=== PATIENT | female | born 1940 | race Caucasian/White ===

== ENCOUNTER 2023-06-14 15:31 | Inpatient (IN) | payer MEDICARE, BC, SELFPAY ==
[2023-06-14] VITALS (13 sets, daily range): BP systolic 109–158; BP diastolic 62–104; BMI 33.6; BMI 31.2
--- NOTE | 2023-06-14 08:51 | ED.GENMED ---
History of Present Illness
General
Chief Complaint: Heart Rate Problem
Source: patient
Exam Limitations: none
Time Seen by Provider: 06/14/23 08:38
Travel History
Have you had any contact with someone who has COVID-19?: No
Do you have any symptoms of coronavirus? Fever > 100 degrees, chills, cough, shortness of breath, sore throat, loss of taste or smell, muscle aches, or headache?: No
History of Present Illness
History of Present Illness:
See MDM
Past History
Past History
ED Past Medical History: Arrthythmia, CAD, GERD, HTN and Other (Breast CA)
Social History
Tobacco: Former smoker
Drug: None
Living: alone
Phy Exam
Physical Exam
Physical Exam:
See MDM
Course
Orders/Labs/Results
Orders:
Orders
06/14/23 08:28
Electrocardiogram (*1) Urgent
Reason for Study: Tachycardia
EKG- Treatment ONCE
06/14/23 08:48
Diltiazem HCl [Cardizem] 15 mg IV NOW STA
06/14/23 08:50
0.9% Sodium Chloride 1000 ml [Nss] 1,000 ml IV BOLUS
06/14/23 08:59
Complete Blood Count/With Diff Urgent
Comprehensive Metabolic Panel Urgent
Magnesium Urgent
06/14/23 10:34
Electrocardiogram (*1) Urgent
Reason for Study: Other
Other Reason for Exam: post rapid afib
EKG- Treatment ONCE
06/14/23 11:28
Potassium Chloride [KCl] 40 meq PO NOW STA
06/14/23 13:44
Consult Cardiology [CARDIOLOGY CONSULT] Urgent
Consulting Provider: Shahbaz Brown
Was physician already notified: Yes
Abnormal Lab Results
06/14/23
08:59
MPV 10.8 H fL
(7.4-10.4)
Absolute Monos (auto) 0.7 H 10^3/uL
(0.1-0.6)
Monocytes % 9.8 H %
(1.7-9.3)
Potassium 3.4 L mmol/L
(3.5-5.1)
Chloride 112 H mmol/L
(98-107)
Carbon Dioxide 17 L mmol/L
(22-30)
Glucose 116 H mg/dl
(70-99)
06/14/23 08:59
06/14/23 08:59
Vital Signs
Initial and Last Documented VS:
Initial Vital Signs
Temp Pulse Resp BP Pulse Ox
97.5 F 134 22 158/104 99
06/14/23 08:22 06/14/23 08:22 06/14/23 08:22 06/14/23 08:22 06/14/23 08:22
Last Documented Vital Signs
Temp Pulse Resp BP Pulse Ox
97.5 F 99 25 133/96 97
06/14/23 08:22 06/14/23 13:00 06/14/23 13:15 06/14/23 13:00 06/14/23 13:15
MDM/Problems Addressed
Differential Diagnosis Includes:
HPI and MDM Narrative:
82-year-old female presenting for evaluation of A-fib. She has a history of paroxysmal A-fib. She has been feeling short of breath over the past few days which is normal for her A-fib. She put on her Apple Watch today and told her she was in
A-fib. Patient denies chest pain or
Will give IV Cardizem and fluids and continue to reassess
Physical exam
General: Well appearing and non-toxic
HEENT: protecting airway
Neck: appears supple
CV: No evidence of cyanosis. Tachycardic and irregular
Resp: No accessory muscle use. Lungs clear
Abd: Non-distended
Extremities: No deformities. No leg edema
Neuro: alert
Psych: Normal affect
Skin: Intact
Problems Addressed including Acute and Chronic Conditions affecting care:
1. A-fib with RVR
Acuity: acute
Prognosis: unstable
Details: Will give IV fluids and IV Cardizem and attempt for chemical cardioversion
Updates
Case discussed with cardiology. Given that her baseline heart rate is in the 50s, there is not much room for sotalol. Because patient lives alone, she is not a great candidate to be cardioverted from the emergency department. Cardiology will
evaluate but will admit for further workup and treatment of symptomatic A-fib
Differential Diagnosis (but not limited to): A-fib with RVR, ACS, dehydration
Testing considered: D-dimer but she is anticoagulated
Drug therapy (if applicable): OTC meds, please see d/c instruction regarding Rx drugs
Amount and/or Complexity of Data Reviewed
Clinical info obtained from: Patient
External data reviewed: N/A
Labs I independently reviewed (but not limited to): mild hypoK
Radiology: N/A
Pulse Ox: not hypoxic
EKG independently reviewed: A-fib with RVR, normal axis, no STEMI
Financial Specialist: N/A
Critical Care: The high probability of a clinically significant, sudden or life threatening deterioration of the cardiovascular system(s) required my full and direct attention, intervention and personal management. The aggregate critical care time
was 33 minutes. This time is in addition to time spent performing reported procedures but includes the following:
[x] Data Review and interpretation
[x] Patient assessment and monitoring of vital signs
[x] Documentation
[x] Medication orders and management
Risk of Complication:
Social Determinants of health: Good social support
Discussed with other providers: Cardiology, hospital
Escalation of Care includes Admit/Obs: Given her symptomatic A-fib, will admit
Occasional wrong word or 'sound a like' substitutions may have occurred due to the inherent limitations of voice recognition software. Read the chart carefully and recognize, using context, where substitutions have occurred.
*Critical Care Note
Total Time (30-74mins, 75-104mins- exclusive of procedures): 33 min
ED Attending Note
-
Portions of this chart may have been created with voice recognition software.� Occasional wrong word or��sound alike� substitutions may have occurred due to the inherent limitations of voice recognition software.
Discharge Plan
Departure
Patient Disposition: Admit
Date of Disposition: 06/14/23
Time of Disposition: 13:49
Admit to: Telemetry
Presentation/result/management discussed w/ accepting MD/DO: Hospitalist
Discharge Problem:
A-fib, Acute dyspnea
Prescriptions:
No Action
cetirizine [Zyrtec] 10 mg Tablet
10 mg PO QPM
olmesartan 40 mg tablet
40 mg PO DAILY
clopidogrel 75 mg Tablet
75 mg PO DAILY Qty: 30 0RF
metoprolol succinate 25 mg Tablet Extended Release 24 Hr
12.5 mg PO DAILY Qty: 30 2RF
pantoprazole 40 mg Tablet,Delayed Release (Dr/Ec)
40 mg PO DAILY Qty: 30 2RF
nitroglycerin 0.4 mg tablet, sublingual
0.4 mg sublingual Q5M PRN (Reason: chest pain) Qty: 30 0RF
Xarelto 15 mg tablet
15 mg PO QPM
sotalol 80 mg Tablet
80 mg PO DAILY Qty: 30 1RF
aspirin 81 mg Tablet,Chewable
81 mg PO DAILY 4 Days Qty: 7 0RF
rosuvastatin 10 mg Tablet
10 mg PO DAILY@2030 Qty: 90 1RF
Referrals:
NONE,* [Family Provider] -
Interventions
Interventions:
*Risk Screen - Suicide Last Done: 06/14/23 08:22
*General Assessment Last Done: 06/14/23 08:22
*Neglect/Abuse Screening Last Done: 06/14/23 08:22
ED- Fall Risk Assessment Last Done: 06/14/23 08:42
*ED COVID-19 Vaccine History Last Done: 06/14/23 08:42
ED- Cardiac Assessment Last Done: 06/14/23 08:42
ED- Pulmonary Assessment Last Done: 06/14/23 08:42
[2023-06-14] MEDS: NSS 1000 IV (09:04)
[2023-06-14] MEDS: CARDIZEM 15 MG IV (09:04)
[2023-06-14 09:12] LABS: % Basophils 1.1 % (0-2); % Immature Granulocytes 0.3 % (0-0.5); % Lymphocytes 29.5 % (20.5-51.1); % Monocytes 9.8 % (1.7-9.3); % Neutrophils 53.3 % (42.2-75.2); Absolute Basophils 0.1 10^3/uL (0-0.2); Absolute Eosinophils 0.4 10^3/uL (0-0.7); Absolute Lymphocytes 2.1 10^3/uL (1.2-3.4); Absolute Monocytes 0.7 10^3/uL (0.1-0.6); Absolute Neutrophils 3.7 10^3/uL (1.4-6.5); Hematocrit 38.4 % (37.0-47.0); Hemoglobin 13.6 g/dL (12.0-16.0); Mean Corp Hgb Conc. 35.4 g/dL (33.0-37.0); Mean Corpuscular Hgb 29.3 pg (27.0-31.0); Mean Corpuscular Volume 82.8 fL (81.0-99.0); Mean Platelet Volume 10.8 fL (7.4-10.4); Nucleated Red Blood Cells % 0 %; Platelet Count 289 10^3/uL (130-400); Red Blood Cell Count 4.64 10^6/uL (4.20-5.40); Red Cell Dist. Width 13.7 % (11.5-14.5)
[2023-06-14 10:02] LABS: Blood Urea Nitrogen 17 mg/dl (7-17); Estimated Creatinine Clearance 45 ml/min; Glucose 116 mg/dl (70-99); Potassium 3.4 mmol/L (3.5-5.1); eGFR > 60.00
[2023-06-14 10:03] LABS: ALT (SGPT) 15 U/L (0-35); AST (SGOT) 32 U/L (14-36); Albumin 4.2 g/dl (3.5-5.0); Alkaline Phosphatase 97 U/L (38-126); Calcium 9.7 mg/dl (8.4-10.2); Carbon Dioxide 17 mmol/L (22-30); Chloride 112 mmol/L (98-107); Magnesium 2.2 mg/dl (1.6-2.3); Sodium 135 mmol/L (135-145); Total Bilirubin 1.3 mg/dl (0.2-1.3)
[2023-06-14 10:04] LABS: Total Protein 7.1 g/dl (6.3-8.2)
[2023-06-14] MEDS: KCL 40 MEQ PO (11:41)
--- NOTE | 2023-06-14 12:21 | CON.CAR ---
Addendum entered and electronically signed by Shahbaz Brown MD 06/14/23 14:19:
I saw and examined the patient.
The COMPUTER SUPPORT SPECIALIST INSTRUCTOR's note was reviewed and I agree with the note.
82-year-old woman with a history of paroxysmal atrial fibrillation who is maintained on sotalol 80 mg daily and Xarelto, asthma hypertension hypercholesterolemia who presents with tiredness and fatigue and noticed on her Apple Watch that she was in
A-fib. Patient with A-fib with RVR and heart rates in the 130s with improvement in rates after administration of IV Cardizem 15 mg x 1 in the emergency department but then heart rates have slowly increased and now are between 110 120 bpm. Patient
is consistently been on anticoagulation has had brief palpitations lasting seconds but no other episodes of sustained A-fib since the summer 2022. Review of heart rate trends from her phone suggested her heart rates are mainly in the 50s to 60s.
Last office visit heart rate 61 bpm. Onset of symptoms was Tuesday afternoon. Patient had some alcohol on Tuesday night but none on Tuesday or Tuesday.
-Admit for additional management of symptomatic A-fib with RVR
-Continue sotalol 80 mg a day. Patient's last dose was this the morning.
-Continue anticoagulation with Xarelto.
-If patient does not spontaneously convert back to sinus rhythm then would plan for electrical cardioversion in the morning of 06/15/2023
-Regarding rhythm management strategy I discussed options of continuing sotalol 80 mg a day but explained to her that it is unclear how long she will go for she has recurrent A-fib again. We also discussed the limited antiarrhythmic options. We
also discussed options of transitioning from sotalol to amiodarone as well as the option of A-fib ablation. For now we will continue with sotalol and plan for cardioversion in a.m.
Original Note:
Consultation
Consultation Request
Date/Time Consultation Requested: 06/14/23 11:50
Date/Time Consultation Performed: 06/14/23 12:20
Requesting Provider: Dr. Camacho
Performing Provider: GREG Ocasio for Dr. Brown
Reason for Consultation: Paroxysmal atrial fibrillation
Medical History
-
Chief Complaint: Episode of atrial fibrillation
History of Present Illness:
Patient is an 82-year-old female (previously followed by Dr. Real Fairbanks, [facility]) with paroxysmal atrial fibrillation (on sotalol and Xarelto), hypertension, hyperlipidemia CKD 3, asthma, former breast cancer and former smoker who
presented to the ER with a chief complaint of atrial fibrillation according to Apple Watch. She endorses having fatigue. She is not having any chest pain. She denies dyspnea.
Past Medical History
Past Medical History: Arrhythmias (Paroxysmal atrial fibrillation [on sotalol and Xarelto]), Asthma, CAD, Cancer (Breast), HTN, Hypercholesterolemia and Renal Failure (CKD)
Social History
Tobacco: Former Smoker
Living: Alone
Employment: Retired
Family History
Family History: Reviewed & Not Pertinent
Allergies / Home Medications
Allergy/AdvReac Type Severity Reaction Status Date / Time
latex Allergy Unknown Verified 11/29/22 13:55
nickel Allergy Unknown Verified 11/29/22 13:55
polyethylene glycol Allergy Unknown Verified 11/29/22 13:55
rofecoxib [From Vioxx] Allergy Unknown Verified 11/29/22 13:55
Sulfa (Sulfonamide Allergy Shortness Verified 11/29/22 13:55
Antibiotics) of Breath
Medication Instructions Recorded Confirmed Type
cetirizine 10 mg tablet (Zyrtec) 10 mg PO QPM Allergies 11/23/22 11/30/22 History
olmesartan 40 mg tablet 40 mg PO DAILY Blood Pressure 11/23/22 11/29/22 History
clopidogrel 75 mg tablet 75 mg PO DAILY #30 tabs 11/27/22 11/29/22 Rx
metoprolol succinate 25 mg 12.5 mg PO DAILY #30 tabs 11/27/22 11/29/22 Rx
tablet,extended release 24 hr
nitroglycerin 0.4 mg sublingual 0.4 mg sublingual Q5M PRN chest 11/27/22 11/29/22 Rx
tablet pain #30 tabs
pantoprazole 40 mg tablet,delayed 40 mg PO DAILY #30 tabs 11/27/22 11/29/22 Rx
release
rivaroxaban 15 mg tablet (Xarelto) 15 mg PO QPM Blood Clot 11/29/22 11/30/22 History
Prevention/Tx
aspirin 81 mg chewable tablet 81 mg PO DAILY 4 days #7 tabs 12/03/22 11/29/22 Rx
rosuvastatin 10 mg tablet 10 mg PO DAILY@2030 High 12/03/22 Rx
cholesterol #90 tabs
sotalol 80 mg tablet 80 mg PO DAILY Arrhythmia #30 tabs 12/03/22 Rx
Review of Systems
-
History Source: Patient
All other systems: Negative unless noted
Cardiac: Palpitations
Physical Exam
Vital Signs
Temp Pulse Resp BP Pulse Ox
97.5 F 83 15 139/99 99
06/14/23 08:22 06/14/23 11:45 06/14/23 11:45 06/14/23 11:30 06/14/23 11:45
Lab Results
06/14/23 08:59
06/14/23 08:59
Physical Exam
General: Well Developed, Well Nourished, No Apparent Distress and Comfortable
HEENT: Normocephalic, Anicteric and Moist Mucous Membranes
Respiratory: Non Labored Respirations
Cardiac: S1/S2 and Irregular Rhythm; Negative Peripheral Edema
Breast: Deferred by me
GI: Soft, Non Tender, Non Distended and Normal Bowel Sounds
Rectal: Deferred by Provider
Genito-urinary: No Costovertebral Tender
Musculoskeletal: No Clubbing, No Cyanosis and No Edema
Skin: Warm and Dry
Neuro: AO x 3
Hematologic/Lymphatic: No Lymphadenopathy
Psych: Calm
Impression / Plan
-
Paroxysmal atrial fibrillation
-Rates improved with Diltiazem 15mg IV by ER
-Unable to increase sotalol due to renal function
-Resting HR per Apple Watch review 50-60bpm, < 100bpm with ambulation
-Oral Anticoagulation: Xarelto 15mg daily, she denies missed doses and abnormal bleeding
-[id number]: Score at least 5 (HTN, age 75 or more, Vascular disease, female gender)
-Last DCCV 12/01/2022 with synagogue of sinus
CAD
-Stable without chest pain
-Declined CABG 11/2022, PCI with GINNA with LAD with medical therapy for residual CAD
-PCI with GINNA to high grade ostial circ later that same month due to NSTEMI, continue clopidogrel
-Recent stress test at outside cardiology office
HTN, chronic
CKDIII
HLD, on rosuvastatin
Asthma
Former smoker
Data Reviewed
-
EKG: Report Reviewed by me (Atrial fibrillation ventricular response, PVCs, rate 120; atrial fibrillation, rate 64)
Medical Tests (Nuc Med, Echo etc): Report Reviewed by me
Labs: Labs Reviewed by me
Old Records: Reviewed
--- NOTE | 2023-06-14 14:53 | HPS.HSE ---
Addendum entered and electronically signed by Jm Márquez MD 06/14/23 15:50:
I saw and examined the patient.
The POWER CLEANER OPERATOR or PA's note was reviewed and I agree with the note.
Comment: 82-year-old with history of paroxysmal atrial fibrillation, CAD, hypertension presenting for shortness of breath. Found to be in atrial fibrillation. Already on sotalol, has history of 3 prior cardioversions. Has been compliant with
daily Xarelto. Patient admitted to IVU. Cardiology consulted, plan for cardioversion tomorrow. If needed, can start Cardizem drip once confirmed by cardiology.
Original Note:
Family Physician
-
Family Physician: * NONE
Chief Complaint
-
Shortness of Breath and Elevated Heart Rate
History of Present Illness
Patient is a 82F with PMH of paroxysmal atrial fibrillation, CAD, and hypertension who presents complaining of shortness of breath. She says she woke up at 2am feeling 'not right'. She checked her Apple watch which told her that she is in atrial
fibrillation. She waited a few hours to see if it would convert, but heart rate remained elevated so she presents to the emergency department for evaluation. She denies palpitations, chest pain, dizziness, and weight gain. She reports history of 3
prior cardioversions. She has been compliant with daily Xarelto.
Medical History
Past Medical History
Past Medical History: Reports Other
Additional Past Medical History:
Paroxysmal Atrial Fibrillation
Coronary Artery Disease
Dyslipidemia
Hypertension
Breast Cancer w/ Lumpectomy
Asthma
GERD
Past Surgical History: Reports Other
Additional Past Surgical History:
Right Lumpectomy
Social History
Tobacco: Former Smoker
Alcohol: Occasional
Family History
Family History: Not pertinent
Allergies / Home Medications
Allergies reflects when Allergies were last updated in [facility].
Home Medications with original date entered in [facility]
Allergy/Medication List:
Allergies
Allergy/AdvReac Type Severity Reaction Status Date / Time
latex Allergy Unknown Verified 11/29/22 13:55
nickel Allergy Unknown Verified 11/29/22 13:55
polyethylene glycol Allergy Unknown Verified 11/29/22 13:55
rofecoxib [From Vioxx] Allergy Unknown Verified 11/29/22 13:55
Sulfa (Sulfonamide Allergy Shortness Verified 11/29/22 13:55
Antibiotics) of Breath
Home Medications
cetirizine 10 mg tablet (Zyrtec) 10 mg PO QPM Allergies 11/23/22
olmesartan 40 mg tablet 40 mg PO DAILY Blood Pressure 11/23/22
clopidogrel 75 mg tablet 75 mg PO DAILY #30 tabs 11/27/22
rivaroxaban 15 mg tablet (Xarelto) 15 mg PO DAILY Blood Clot Prevention/Tx 11/29/22
sotalol 80 mg tablet 80 mg PO DAILY Arrhythmia #30 tabs 12/03/22
ascorbic acid (vitamin C) 500 mg tablet (Vitamin C) 500 mg PO DAILY 06/14/23
cholecalciferol (vitamin D3) 25 mcg (1,000 unit) tablet (Vitamin D3) 25 mcg PO DAILY 06/14/23
fluticasone furoate 200 mcg-vilanterol 25 mcg/dose inhalation powder (Breo Ellipta) 1 inh inhalation R DAILY 06/14/23
nisoldipine 8.5 mg tablet,extended release 24 hr 8.5 mg PO QPM 06/14/23
rosuvastatin 10 mg tablet 10 mg PO QPM High cholesterol 06/14/23
Review of Systems
-
A 12 point ROS was completed and negative except as noted: Yes
Constitutional: Denies Fever or Chills
Respiratory: Reports Trouble Breathing; Denies Cough
Cardiac: Denies Chest Pain or Palpitations
Physical Exam
Vital Signs
Vital Signs
Temp Pulse Resp BP Pulse Ox
97.5 F 97 18 134/62 99
06/14/23 08:22 06/14/23 13:30 06/14/23 13:45 06/14/23 13:30 06/14/23 13:30
Physical Exam
General: Comfortable and Conversant
HEENT: NormoCephalic, Moist mucous membranes and Atraumatic
Respiratory: Clear and Non Labored Respirations
Cardiac: S1/S2, Irregular Rhythm and Tachycardia
GI: Soft, Non Tender and Non Distended
Rectal: Deferred by Provider
Musculoskeletal: No Clubbing, No Cyanosis and No Edema
Skin: Warm and Dry
Neuro: Awake, Alert, Oriented and Nonfocal/grossly intact
Laboratory Results
-
06/14/23 08:59
06/14/23 08:59
Laboratory Results
Total Bilirubin 1.3 mg/dl (0.2-1.3) 06/14/23 08:59
AST 32 U/L (14-36) 06/14/23 08:59
ALT 15 U/L (0-35) 06/14/23 08:59
Alkaline Phosphatase 97 U/L (38-126) 06/14/23 08:59
Impression/Plan
-
Symptomatic Atrial Fibrillation with Rapid Ventricular Response
-Consult Cardiology
-Rate variable - Monitor closely in IVU
-Continue Sotalol
-Continue Xarelto
-NPO after midnight for possible cardioversion
Coronary Artery Disease s/p Stent
-Continue Plavix
Essential Hypertension
-Continue nisoldipine
Hyperlipidemia
Asthma, no acute exacerbation
-Continue Breo
Hx Breast CA s/p Lumpectomy
DVT proph: Xarelto
Code Status: Full Code
[2023-06-14] MEDS: CRESTOR PO (18:26)
[2023-06-14] MEDS: ZYRTEC PO (18:26)
--- NOTE | 2023-06-14 18:32 | PTCARENOTE ---
Patient admitted from ED with AF with RVR. Oriented to room and plan of care. Remains in AF, HR in the 120's at rest. Patient is aware she will be NPO after midnight for possible CV if she remains in AF. Patient took all of her meds this morning in
addition to her PM meds which she had missed last night. Admission assessment completed, call meyers within reach.
[2023-06-14] MEDS: SYMBICORT 160/4.5 MCG INHALER 2 PUFF INH (19:53)
--- NOTE | 2023-06-14 21:51 | PTCARENOTE ---
Received pt at handoff. AOx3. Assessment noted as documented. Tele- afib. HR 100-119s. Pt aware of NPO status for CV tomorrow. Pt ambulatory in room; steady gait. No complaints of dizziness/discomfort. Pt currently in bed; call meyers w/in reach.
[2023-06-15] VITALS (8 sets, daily range): BP systolic 107–149; BP diastolic 76–109
[2023-06-15 04:33] LABS: Hematocrit 38.8 % (37.0-47.0); Hemoglobin 13.3 g/dL (12.0-16.0); Mean Corp Hgb Conc. 34.3 g/dL (33.0-37.0); Mean Corpuscular Hgb 29.1 pg (27.0-31.0); Mean Corpuscular Volume 84.9 fL (81.0-99.0); Mean Platelet Volume 10.4 fL (7.4-10.4); Platelet Count 265 10^3/uL (130-400); Red Blood Cell Count 4.57 10^6/uL (4.20-5.40); Red Cell Dist. Width 13.9 % (11.5-14.5)
[2023-06-15 05:12] LABS: Blood Urea Nitrogen 21 mg/dl (7-17); Calcium 9.8 mg/dl (8.4-10.2); Carbon Dioxide 19 mmol/L (22-30); Chloride 110 mmol/L (98-107); Estimated Creatinine Clearance 44 ml/min; Glucose 113 mg/dl (70-99); Magnesium 2.2 mg/dl (1.6-2.3); Potassium 4.5 mmol/L (3.5-5.1); Sodium 139 mmol/L (135-145); eGFR > 60.00
[2023-06-15] MEDS: SYMBICORT 160/4.5 MCG INHALER INH ×2 (07:23→19:37)
[2023-06-15] MEDS: PLAVIX 75 MG PO (07:56)
[2023-06-15] MEDS: XARELTO 15 MG PO (07:57)
[2023-06-15] MEDS: BETAPACE 80 MG PO (07:57)
[2023-06-15] MEDS: FLUSH (NSS) 1 FLUSH IV (07:58)
[2023-06-15] MEDS: BENICAR 40 MG PO (08:02)
--- NOTE | 2023-06-15 09:08 | PTCARENOTE ---
"Received patient this morning ambulating in the room and out to the hallway. Remains in AF, HR in the 150's. Patient very anxious and upset that she is still in AF and that her rates are so high. Given AM sotalol with a sip of water. Notified "Nallely of patient's high heart rate, no further medication ordered, plan for CV engineering intern. EP lab called and patient taken for CV."
--- NOTE | 2023-06-15 10:17 | W.PN.CD ---
Today's Communication / Plan
-
-Status-post successful DCCVN via 200J sync. shock x 1 with shinto of sinus rhythm.
-Continue sotalol 80 mg daily; cannot increase due to renal function.
-Continue to monitor on telemetry overnight; discharge to home tomorrow if remains in NSR.
-Continue clopidogrel.
Impression / Plan
-
Paroxysmal atrial fibrillation
-Status-post successful DCCVN via 200J sync. shock x 1 with shinto of sinus rhythm.
-Continue sotalol 80 mg daily; cannot increase due to renal function.
-Oral Anticoagulation: Continue Xarelto 15mg daily uniteruupted for at least 30 days post-DCCVN.
-[id number]: Score at least 5 (HTN, age 75 or more, Vascular disease, female gender)
-Last DCCV was 12/01/2022 with shinto of sinus.
-Continue to monitor on telemetry overnight; discharge to home tomorrow if remains in NSR.
CAD
-Stable.
-Declined CABG 11/2022; underwent PCI with GINNA to LAD with medical therapy for residual CAD.
-PCI with GINNA to high grade ostial circ later that same month due to NSTEMI; Continue clopidogrel.
-Recent stress test at outside cardiology office
HTN, chronic
CKDIII
HLD, on rosuvastatin
Asthma
Former smoker
Physical Exam
Vital Signs/Labs
Vital Signs
Temp Pulse Resp BP Pulse Ox
97.5 F 147 18 147/109 98
06/15/23 06:43 06/15/23 08:02 06/15/23 06:43 06/15/23 08:02 06/15/23 06:43
06/14/23 06/15/23 06/16/23
06:59 06:59 06:59
Actual Weight 72.4 kg
06/15/23 04:13
06/15/23 04:13
Magnesium 2.2 mg/dl (1.6-2.3) 06/15/23 04:13
Physical Exam
Constitutional: No acute distress and Comfortable
EENT: Anicteric
Cardiovascular: Pedal edema is absent, Systolic murmur absent, Rhythm/rate is irregular and S1S2 is normal
Respiratory: Respiratory effort normal and Lungs clear to auscul.
GI: Soft
Neuro/Psych: AO x 3
Other: Skin (warm, dry, intact)
Data Reviewed
-
Date of Service: June 15, 2023
EKG: Tracing Personally Visualized and interpreted (AFIB)
Medical Tests (PFT, Pathology etc): Discussed with Physician, Discussed with Nurse and Discussed with Patient
Labs: Labs Reviewed by me
--- NOTE | 2023-06-15 11:02 | PTCARENOTE ---
Patient returned after successful CV in SR, rate in the 60's. Reordered diet, offers no complaints, patient states she feels much better.
--- NOTE | 2023-06-15 12:01 | CM ---
Reviewed chart. Met with to review discharge plans. She states prior to admission she resides alone in a two story home with four steps to enter. She states she has a full flight of steps to get to bedroom/full bathroom. She states she
has a powder room on the first floor. She states prior to admission she was independent with ambulation and adls. She states she does not have any DME in the home. She states she has a prescription plan and uses [facility]. Medical
work-up in progress. The discharge plan is to return home when medically stable.
[2023-06-15] MEDS: VITAMIN D3 (cholecalciferol) 25 MCG PO (13:09)
[2023-06-15] MEDS: VITAMIN C 500 MG PO (13:09)
[2023-06-15] MEDS: CRESTOR 10 MG PO (16:38)
[2023-06-15] MEDS: ZYRTEC 10 MG PO (16:39)
--- NOTE | 2023-06-15 16:53 | W.PN.HOSP.TC ---
Today's Communication/Plan
-
cardioverted today
ctm and if NSR tomorrow, can dc
Assessment / Plan
Assessment / Plan
Physical Exam
General: Comfortable and Conversant
HEENT: NormoCephalic, Moist mucous membranes and Atraumatic
Respiratory: Clear and Non Labored Respirations
Cardiac: S1/S2, NSR
GI: Soft, Non Tender and Non Distended
Rectal: Deferred by Provider
Musculoskeletal: No Clubbing, No Cyanosis and No Edema
Skin: Warm and Dry
Neuro: Awake, Alert, Oriented and Nonfocal/grossly intact
Symptomatic Atrial Fibrillation with Rapid Ventricular Response
-Consult Cardiology
-Cardioverted today 06/15 with resolution
-Continue Sotalol
-Continue Xarelto
-DC tomorrow if remains in NSR
Coronary Artery Disease s/p Stent
-Continue Plavix
Essential Hypertension
-Continue nisoldipine
Hyperlipidemia
Asthma, no acute exacerbation
-Continue Breo
Hx Breast CA s/p Lumpectomy
DVT proph: Xarelto
Code Status: Full Code
Total time spent on today's encounter was 50 minutes which included time spent in counseling the patient/family regarding diagnosis and treatment plan as listed above, goals of care, and symptom management. Case was discussed with nursing staff,
specialists, and care coordinators/case management. All labs and imaging personally reviewed by me. Remainder the time spent in detailed review of previous records, lab data, imaging, and other medical provider documentation.
Anticipated Discharge: Within 24 hours
Subjective/Interval History
-
Date of Service: June 15, 2023
feels better after cardioversion today
Objective Data
-
Labs:
Laboratory Results
06/15/23
04:13
Sodium 139
Potassium 4.5 D
Chloride 110 H
Carbon Dioxide 19 L
BUN 21 H
Creatinine 0.9
Glucose 113 H
Calcium 9.8
Vital Signs:
Vital Signs
Temp Pulse Resp BP Pulse Ox
97.4 F 60 20 119/76 99
06/15/23 16:38 06/15/23 12:15 06/15/23 16:38 06/15/23 11:22 06/15/23 16:38
I&O
06/14/23 06/15/23 06/16/23
06:59 06:59 06:59
Intake Total 480 / 480 360 / 360
Balance 480 / 480 360 / 360
Review of Systems
-
History Source: Patient
Constitutional: Denies Fever
EENT: Reports No Symptoms Reported
Respiratory: Reports No Symptoms
Cardiac: Denies Chest Pain (denies chest pain at this time)
Abdomen/GI: Reports No Symptoms
Musculoskeletal: Reports No Symptoms
Data Reviewed
-
Diagnostic Radiology: Report Reviewed by me
Labs: Labs Reviewed by me
--- NOTE | 2023-06-16 01:21 | PTCARENOTE ---
Patient remains SR-himanshu w/ occasional PVCs. HR in the 50-60's at rest. Denies any pain, BP stable. Aware of POC, call meyesr in reach.
[2023-06-16 03:59] VITALS: BP 114/79
[2023-06-16 06:53] VITALS: BP 122/109
[2023-06-16 06:54] VITALS: BP 114/66
[2023-06-16] MEDS: SYMBICORT 160/4.5 MCG INHALER INH (07:31)
[2023-06-16] MEDS: BENICAR 40 MG PO (08:38)
[2023-06-16] MEDS: VITAMIN D3 (cholecalciferol) 25 MCG PO (08:38)
[2023-06-16] MEDS: BETAPACE 80 MG PO (08:38)
[2023-06-16] MEDS: XARELTO 15 MG PO (08:39)
[2023-06-16] MEDS: VITAMIN C 500 MG PO (08:39)
[2023-06-16] MEDS: PLAVIX 75 MG PO (08:39)
--- NOTE | 2023-06-16 09:37 | W.PN.CD ---
Today's Communication / Plan
-
continue home medications
- plan for outpatient follow up
- we will sign off please call with questions/concerns
Impression / Plan
-
Paroxysmal atrial fibrillation
-Status-post successful DCCVN via 200J sync. shock x 1 with anglican of sinus rhythm.
-Continue sotalol 80 mg daily; cannot increase due to renal function.
-Oral Anticoagulation: Continue Xarelto 15mg daily uniteruupted for at least 30 days post-DCCVN.
-[id number]: Score at least 5 (HTN, age 75 or more, Vascular disease, female gender)
-Last DCCV was 12/01/2022 with anglican of sinus.
-Remains in sinus
CAD
-Stable.
-Declined CABG 11/2022; underwent PCI with GINNA to LAD with medical therapy for residual CAD.
-PCI with GINNA to high grade ostial circ later that same month due to NSTEMI; Continue clopidogrel.
-Recent stress test at outside cardiology office
HTN, chronic
CKDIII
HLD, on rosuvastatin
Asthma
Former smoker
Physical Exam
Vital Signs/Labs
Vital Signs
Temp Pulse Resp BP Pulse Ox
98 F 68 20 114/66 100
06/16/23 06:51 06/16/23 08:38 06/16/23 06:51 06/16/23 08:38 06/16/23 06:51
06/15/23 06/16/23 06/17/23
06:59 06:59 06:59
Actual Weight 159 lb 9.835 oz
06/15/23 04:13
06/15/23 04:13
Magnesium 2.2 mg/dl (1.6-2.3) 06/15/23 04:13
Physical Exam
Constitutional: No acute distress
EENT: Anicteric
Cardiovascular: Rhythm & rate is regular and Pedal edema is absent
Respiratory: Respiratory effort normal and Lungs clear to auscul.
GI: Soft
Neuro/Psych: AO x 3
Data Reviewed
-
Date of Service: June 16, 2023
EKG: Tracing Personally Visualized and interpreted
Echo: Report Reviewed by me
Labs: Labs Reviewed by me
--- NOTE | 2023-06-16 11:01 | PTCARENOTE ---
pt c/o of itchy back from CV. notified hospitalist will order cream for her back. pt continues to be SR on the monitor, HR in the 60s, VSS. pt offers no other complaints at this time. pt educated on plan of care for the day and pt verbalized
understanding. call meyers within reach.
[2023-06-16 11:22] VITALS: BP 139/76
--- NOTE | 2023-06-16 13:22 | W.PN.HOSP.TC ---
Addendum entered and electronically signed by Jm Márquez MD 06/17/23 17:09:
[id number]
Original Note:
Today's Communication/Plan
-
Remains in sinus
-Continue Sotalol
-Continue Xarelto - continue Xarelto 15mg daily uninterrupted for at least 30 days post-DCCVN
F/u Cards, and PCP outpatient
Assessment / Plan
Assessment / Plan
Physical Exam
General: Comfortable and Conversant
HEENT: NormoCephalic, Moist mucous membranes and Atraumatic
Respiratory: Clear and Non Labored Respirations
Cardiac: S1/S2, NSR
GI: Soft, Non Tender and Non Distended
Rectal: Deferred by Provider
Musculoskeletal: No Clubbing, No Cyanosis and No Edema
Skin: Warm and Dry
Neuro: Awake, Alert, Oriented and Nonfocal/grossly intact
Symptomatic Atrial Fibrillation with Rapid Ventricular Response
-Cardiology on board
-Cardioverted today 06/15 with resolution
-Continue Sotalol
-Continue Xarelto - continue Xarelto 15mg daily uninterrupted for at least 30 days post-DCCVN.
-Remains in Sinus
Coronary Artery Disease s/p Stent
-Continue Plavix
Essential Hypertension
-Continue nisoldipine
Hyperlipidemia
Asthma, no acute exacerbation
-Continue Breo
Hx Breast CA s/p Lumpectomy
DVT proph: Xarelto
Code Status: Full Code
More than 30 minutes spent in discharge including
Final examination of the patient
Summarizing hospital stay
Instructions for continuing care to all relevant caregivers
Preparation of discharge records, prescriptions, and referral forms
Total time spent (35 in minutes):
Anticipated Discharge: Today
Subjective/Interval History
-
Date of Service: June 16, 2023
Remains in sinus
Objective Data
-
Vital Signs:
Vital Signs
Temp Pulse Resp BP Pulse Ox
97.8 F 63 20 114/66 96
06/16/23 11:13 06/16/23 10:00 06/16/23 11:13 06/16/23 08:38 06/16/23 11:13
I&O
06/15/23 06/16/23 06/17/23
06:59 06:59 06:59
Intake Total 480 / 480 840 / 840 480 / 480
Balance 480 / 480 840 / 840 480 / 480
Review of Systems
-
History Source: Patient
All other systems: Not reviewed unless documented
Data Reviewed
-
Diagnostic Radiology: Report Reviewed by me
Labs: Labs Reviewed by me
--- NOTE | 2023-06-16 13:24 | W.DS.TRANS ---
DC Summary - [employer]
-
Discharge Instructions:
Discharge Diagnosis/Procedures
Symptomatic Atrial Fibrillation with Rapid
Ventricular Response s/p DCCV
Diet Low Cholesterol,Low Fat
Instructions:
Stand-Alone Forms:
Changes to Home Medications: No
Discharge Medications:
DC Medications w/original date entered in [employer]
cetirizine 10 mg tablet (Zyrtec) 10 mg PO QPM Allergies 11/23/22
olmesartan 40 mg tablet 40 mg PO DAILY Blood Pressure 11/23/22
clopidogrel 75 mg tablet 75 mg PO DAILY #30 tabs 11/27/22
rivaroxaban 15 mg tablet (Xarelto) 15 mg PO DAILY Blood Clot Prevention/Tx 11/29/22
sotalol 80 mg tablet 80 mg PO DAILY Arrhythmia #30 tabs 12/03/22
ascorbic acid (vitamin C) 500 mg tablet (Vitamin C) 500 mg PO DAILY Supplement 06/14/23
cholecalciferol (vitamin D3) 25 mcg (1,000 unit) tablet (Vitamin D3) 25 mcg PO DAILY Supplement 06/14/23
fluticasone furoate 200 mcg-vilanterol 25 mcg/dose inhalation powder (Breo Ellipta) 1 inh inhalation R DAILY Lung/Breathing Issues 06/14/23
nisoldipine 8.5 mg tablet,extended release 24 hr 8.5 mg PO QPM Blood Pressure 06/14/23
rosuvastatin 10 mg tablet 10 mg PO QPM High cholesterol 06/14/23
Home Medication Changes
none
Pending Results: No
[2023-06-16] MEDS: SILVADENE 1 APPLIC TOPICAL (14:40)
--- NOTE | 2023-06-16 15:13 | PTCARENOTE ---
d/c instructions read to pt and pt verbalized understanding. iv and tele removed. pt left with belongings from room and educational material. pt left via wheelchair with staff member.
== END 2023-06-16 15:13 | disposition home or self-care (01) | DRG 310 ==
LOC: IVU 15:31
PROVIDERS: Internal Medicine; Physician Assistant Medical; ADMITTING PHYSICIAN Internal Medicine; CONSULT PHYSICIAN Internal Medicine Cardiovascular Disease; EMERGENCY PHYSICIAN Student in an Organized Health Care Education/Training Program
PROC: 5A2204Z Restoration of Cardiac Rhythm, Single (ICD-10-PCS; 2023-06-15)
DX: I48.0 Paroxysmal atrial fibrillation (principal); Z87.891 Personal history of nicotine dependence; Z79.82 Long term (current) use of aspirin; I25.10 Atherosclerotic heart disease of native coronary artery without angina pectoris; I12.9 Hypertensive chronic kidney disease with stage 1 through stage 4 chronic kidney disease, or unspecified chronic kidney disease; N18.30 Chronic kidney disease, stage 3 unspecified; E78.00 Pure hypercholesterolemia, unspecified; J45.909 Unspecified asthma, uncomplicated; Z79.01 Long term (current) use of anticoagulants; Z95.5 Presence of coronary angioplasty implant and graft; Z79.02 Long term (current) use of antithrombotics/antiplatelets; Z85.3 Personal history of malignant neoplasm of breast
CPT/HCPCS: 80048; 80053; 83735; 85025; 85027; 92960; 93005; 94640; 96361; 96374; 99291

== ENCOUNTER 2023-08-16 08:34 | Emergency (ER) | payer MEDICARE, BC, SELFPAY ==
[2023-08-16] VITALS (8 sets, daily range): BP systolic 93–131; BP diastolic 66–98; BMI 31.3
[2023-08-16 09:15] LABS: % Basophils 1.5 % (0-2); % Eosinophils 8.1 % (0-6); % Immature Granulocytes 0.3 % (0-0.5); % Lymphocytes 31.2 % (20.5-51.1); % Monocytes 10.4 % (1.7-9.3); % Neutrophils 48.5 % (42.2-75.2); Absolute Basophils 0.1 10^3/uL (0-0.2); Absolute Eosinophils 0.6 10^3/uL (0-0.7); Absolute Lymphocytes 2.4 10^3/uL (1.2-3.4); Absolute Monocytes 0.8 10^3/uL (0.1-0.6); Absolute Neutrophils 3.7 10^3/uL (1.4-6.5); Hematocrit 40.8 % (37.0-47.0); Hemoglobin 13.9 g/dL (12.0-16.0); Mean Corp Hgb Conc. 34.1 g/dL (33.0-37.0); Mean Corpuscular Hgb 29.5 pg (27.0-31.0); Mean Corpuscular Volume 86.6 fL (81.0-99.0); Mean Platelet Volume 10.1 fL (7.4-10.4); Nucleated Red Blood Cells % 0 %; Platelet Count 268 10^3/uL (130-400); Red Blood Cell Count 4.71 10^6/uL (4.20-5.40); Red Cell Dist. Width 13.7 % (11.5-14.5); White Blood Cell Count 7.6 10^3/uL (4.8-10.8)
[2023-08-16 09:24] LABS: INR 1.45; PT 17.5 Sec (11.4-14.6)
[2023-08-16 09:25] LABS: APTT 31.4 Sec (23.4-35.0)
[2023-08-16 09:32] LABS: ALT (SGPT) 16 U/L (0-35); AST (SGOT) 22 U/L (14-36); Albumin 4.3 g/dl (3.5-5.0); Alkaline Phosphatase 111 U/L (38-126); Blood Urea Nitrogen 18 mg/dl (7-17); Calcium 9.7 mg/dl (8.4-10.2); Carbon Dioxide 21 mmol/L (22-30); Chloride 110 mmol/L (98-107); Estimated Creatinine Clearance 39 ml/min; Glucose 124 mg/dl (70-99); Sodium 137 mmol/L (135-145); Total Bilirubin 0.9 mg/dl (0.2-1.3); Total Protein 6.9 g/dl (6.3-8.2); eGFR 56.25
[2023-08-16 09:44] LABS: Troponin I 0.021 ng/ml
--- NOTE | 2023-08-16 09:45 | ED.GENMED ---
History of Present Illness
<Naif Greene Jr., PA-C - Last Filed: 08/16/23 11:01>
General
Chief Complaint: Cardiac Symptoms
Source: patient
Exam Limitations: none
Time Seen by Provider: 08/16/23 09:03
Nursing documentation reviewed up to this point in time: agreed with
Travel History
Have you had any contact with someone who has COVID-19?: No
Do you have any symptoms of coronavirus? Fever > 100 degrees, chills, cough, shortness of breath, sore throat, loss of taste or smell, muscle aches, or headache?: No
History of Present Illness
History of Present Illness:
83-year-old female past medical history of paroxysmal A-fib currently on Xarelto no missed doses as well as sotalol also history of heart disease status post multiple stents currently on Plavix additional history of chronic kidney disease presenting
to the emergency department today with concerns of palpitations lightheadedness starting yesterday afternoon that felt similar to previous episodes of A-fib. Last time she was in A-fib was 2 months ago when she was cardioverted she is otherwise
felt well since then. Denies specific chest pain denies recent illness or fevers.
Past History
<Naif Greene Jr., PA-C - Last Filed: 08/16/23 11:01>
Past History
ED Past Medical History: Arrthythmia, CAD, GERD, HTN and Other (Breast CA)
Social History
Tobacco: Former smoker
Drug: None
Living: alone
Review of Systems
<Naif Greene Jr., PA-C - Last Filed: 08/16/23 11:01>
Review of Systems
Allergies reviewed?: Yes
All Other Systems: ROS reviewed and negative except as documented in HPI and ROS
Phy Exam
<Naif Greene Jr., PA-C - Last Filed: 08/16/23 11:01>
Physical Exam
Physical Exam:
GENERAL: Alert , in no apparent distress
EYE: pupils equal and reactive
NECK: Supple, no significant adenopathy.
ENT: o/p clr, mmm.
CARDIAC: Irregularly irregular rhythm rapid
LUNGS: Clear breath sounds bilaterally, no acute respiratory distress, no wheezes/rales/rhonchi
ABDOMEN: Soft, without focal tenderness, no r/g, no cvat
NEUROLOGICAL: Alert and oriented, no focal neuro deficits
SKIN: Warm and dry, skin intact.
MUSCULOSKELETAL: No edema, well perfused.
PSYCH: Normal and appropriate interaction.
Course
<Naif Greene Jr., PA-C - Last Filed: 08/16/23 11:01>
Orders/Labs/Results
Orders:
Orders
08/16/23
Electrocardiogram (*1) Stat
Reason for Study: Chest Pain
Comment: DONE
08/16/23 08:48
Electrocardiogram (*1) Urgent
Reason for Study: Atrial Fibrillation
EKG- Treatment ONCE
08/16/23 09:07
Complete Blood Count/With Diff Urgent
Comprehensive Metabolic Panel Urgent
PTT Urgent
Prothrombin Time Urgent
Troponin I Urgent
08/16/23 09:26
Propofol [Diprivan] 20 ml .ROUTE .STK-MED
Abnormal Lab Results
08/16/23
09:07
Absolute Monos (auto) 0.8 H 10^3/uL
(0.1-0.6)
Monocytes % 10.4 H %
(1.7-9.3)
Eosinophils % 8.1 H %
(0-6)
PT 17.5 H Sec
(11.4-14.6)
Chloride 110 H mmol/L
(98-107)
Carbon Dioxide 21 L mmol/L
(22-30)
BUN 18 H mg/dl
(7-17)
Glucose 124 H mg/dl
(70-99)
08/16/23 09:07
08/16/23 09:07
Vital Signs
Initial and Last Documented VS:
Initial Vital Signs
Temp Pulse Resp BP Pulse Ox
97.6 F 74 20 119/94 99
08/16/23 08:44 08/16/23 08:44 08/16/23 08:44 08/16/23 08:44 08/16/23 08:44
Last Documented Vital Signs
Temp Pulse Resp BP Pulse Ox
97.9 F 60 16 111/87 100
08/16/23 10:35 08/16/23 10:35 08/16/23 10:35 08/16/23 10:35 08/16/23 10:35
<Tiara Osorio MD - Last Filed: 08/16/23 10:49>
Orders/Labs/Results
Orders:
Orders
08/16/23
Electrocardiogram (*1) Stat
Reason for Study: Chest Pain
Comment: DONE
08/16/23 08:48
Electrocardiogram (*1) Urgent
Reason for Study: Atrial Fibrillation
EKG- Treatment ONCE
08/16/23 09:07
Complete Blood Count/With Diff Urgent
Comprehensive Metabolic Panel Urgent
PTT Urgent
Prothrombin Time Urgent
Troponin I Urgent
08/16/23 09:26
Propofol [Diprivan] 20 ml .ROUTE .STK-MED
Abnormal Lab Results
08/16/23
09:07
Absolute Monos (auto) 0.8 H 10^3/uL
(0.1-0.6)
Monocytes % 10.4 H %
(1.7-9.3)
Eosinophils % 8.1 H %
(0-6)
PT 17.5 H Sec
(11.4-14.6)
Chloride 110 H mmol/L
(98-107)
Carbon Dioxide 21 L mmol/L
(22-30)
BUN 18 H mg/dl
(7-17)
Glucose 124 H mg/dl
(70-99)
08/16/23 09:07
08/16/23 09:07
Vital Signs
Initial and Last Documented VS:
Initial Vital Signs
Temp Pulse Resp BP Pulse Ox
97.6 F 74 20 119/94 99
08/16/23 08:44 08/16/23 08:44 08/16/23 08:44 08/16/23 08:44 08/16/23 08:44
Last Documented Vital Signs
Temp Pulse Resp BP Pulse Ox
97.9 F 60 16 111/87 100
08/16/23 10:35 08/16/23 10:35 08/16/23 10:35 08/16/23 10:35 08/16/23 10:35
Procedures
<Naif Greene Jr., PA-C - Last Filed: 08/16/23 11:01>
Moderate Sedation
ASA Risk Score: Class II
Chart and allergies reviewed: Yes
Consent for anesthesia obtained: Yes
Time out completed (validating right patient & procedure): Yes
Moderate Sedation Start Time(when first medication is given): 09:54
History of difficult intubation: No
Airway free of obstruction: Yes
Patient has a gag reflex: Yes
Patient is able to open mouth: Yes
Patient has no dentures: Yes
Patient has no loose teeth: Yes
Medication administered by Provider during Moderate Sedation: IV Propofol (mg) (60)
Total dose administered: 60
Time drug administered: 09:54
Moderate Sedation Procedure End Time: 10:05
Cardioversion
Indication:: Afib
Performed by:: Myself, Dr. Osorio
Synchronized?: Yes
Energy Used: 200 joules
Number of attempts: 1
Successful?: Yes
Complications: Pt bagged for 2 minutes, no hypoxemia or complication otherwise
ASA Risk Score: Class II
Any reaction or bad outcome to prior sedation/anesthesia?: No history of a reaction
Sedation level to be attained: moderate
Chart and allergies reviewed: Yes
Patient reassessed prior to sedation: Yes
Time out completed at (validating right patient & procedure): 09:54
History of difficult intubation: No
Airway free of obstruction: Yes
Patient has a gag reflex: Yes
Patient is able to open mouth: Yes
Patient has no dentures: Yes
Patient has no loose teeth: Yes
Medication administered by Provider during Moderate Sedation: IV Propofol (mg)
Total dose administered: 60
Time drug administered: 09:54
Start Time: 09:54
Stop Time: 10:05
<Naif Greene Jr., PA-C - Last Filed: 08/16/23 11:01>
MDM/Problems Addressed
MDM/Problems Addressed:
83-year-old female presenting to the emergency department today with concerns of lightheadedness palpitations since yesterday consistent with her previous paroxysmal atrial fibrillation. Patient in A-fib with RVR here . She has not eaten or drank
anything today she did take her Xarelto. No missed doses. Case discussed with cardiology with plans for cardioversion. Patient was and consent signed. Cardioversion was performed and successful 200 J patient tolerated well woke up without
complication. Otherwise stable for discharge return precautions given.
<Naif Greene Jr., PA-C - Last Filed: 08/16/23 11:01>
*Critical Care Note
Total Time (30-74mins, 75-104mins- exclusive of procedures): Not Applicable
ED Attending Note
<Naif Greene Jr., PA-C - Last Filed: 08/16/23 11:01>
-
Portions of this chart may have been created with voice recognition software.� Occasional wrong word or��sound alike� substitutions may have occurred due to the inherent limitations of voice recognition software.
<Tiara Osorio MD - Last Filed: 08/16/23 10:49>
ED Attending Note
Patient seen and examined by attending physician: Yes
I performed the substantive portion of visit, reviewed & personally made and approve the management plan that is documented in note by myself or KAITLIN.: Yes
ED Attending Note:
Patient presents with rapid A-fib and feels uncomfortable with her A-fib. On exam, she is well-appearing, smiling and conversational. There is no sign of heart failure. There is no significant leg edema. Given patient is on chronic
anticoagulation, she has a cardioversion candidate. I personally helped give conscious sedation and cardioversion to the patient. Cardioversion was successful and patient is in a normal sinus rhythm.
Discharge Plan
Departure
Patient Disposition: Home (Routine Discharge)
Date of Disposition: 08/16/23
Time of Disposition: 10:51
Patient with high blood pressure during this ER visit?: No
Condition: Good
Covid-19: Not Applicable
Discharge Problem:
A-fib
Instructions: Atrial Fibrillation (DC), MODERATE SEDATION ADULT
Prescriptions:
No Action
cetirizine [Zyrtec] 10 mg Tablet
10 mg PO QPM
olmesartan 40 mg tablet
40 mg PO DAILY
clopidogrel 75 mg Tablet
75 mg PO DAILY Qty: 30 0RF
Xarelto 15 mg tablet
15 mg PO DAILY
sotalol 80 mg Tablet
80 mg PO DAILY Qty: 30 1RF
ascorbic acid (vitamin C) [Vitamin C] 500 mg Tablet
500 mg PO DAILY
cholecalciferol (vitamin D3) [Vitamin D3] 25 mcg (1,000 unit) Tablet
25 mcg PO DAILY
nisoldipine 8.5 mg Tablet Extended Release 24 Hr
8.5 mg PO QPM
fluticasone furoate-vilanterol [Breo Ellipta] 200-25 mcg/dose Blister With Device
1 inh INHALATION R DAILY
Allergy Eye Drops
1 drp BOTH EYES BIDPRN PRN (Reason: allergies)
nitroglycerin 0.4 mg Tablet, Sublingual
0.4 mg SUBLINGUAL [id number] PRN (Reason: chest pain)
vitamin E (dl, acetate) 180 mg (400 unit) Capsule
180 mg PO DAILY
grape seed extract
1 tab PO DAILY
Referrals:
Bertin Michael MD [Active] - Follow up in 5-7 days
UNKNOWN - PT DOES,NOT KNOW [Family Provider] -
Activity Restrictions/Additional Instructions:
You came to the emergency department today with concerns of atrial fibrillation. You were cardioverted. Please follow closely with your forensic economist. Return to the emergency department for any worsening, new or concerning symptoms.
Interventions
Interventions:
*Risk Screen - Suicide Last Done: 08/16/23 09:10
*General Assessment Last Done: 08/16/23 09:10
*Neglect/Abuse Screening Last Done: 08/16/23 09:10
ED- Fall Risk Assessment Last Done: 08/16/23 09:12
*ED COVID-19 Vaccine History Last Done: 08/16/23 09:10
ED- Pulmonary Assessment Last Done: 08/16/23 09:06
ED- Cardiac Assessment Last Done: 08/16/23 09:06
Discharge Date and Time
Print Language: TRINIDADIAN
== END 2023-08-16 11:26 | disposition home or self-care (01) ==
LOC: EMR 08:34
PROVIDERS: Physician Assistant; EMERGENCY PHYSICIAN Emergency Medicine
DX: I48.91 Unspecified atrial fibrillation (principal); Z87.891 Personal history of nicotine dependence; Z79.01 Long term (current) use of anticoagulants
CPT/HCPCS: 92960; 99285; 99152; 80053; 84484; 85025; 85610; 85730; 93005